=== PATIENT | female | born 1985 | race Caucasian/White ===

== ENCOUNTER 2016-10-23 12:45 | Emergency (ER) | payer MEDICAID ==
[~2016-10-23] VITALS: Ht 167.6 cm; Wt 61.2 kg
[2016-10-23 12:56] VITALS: BP 134/90
[2016-10-23] MEDS ORDERED: ONDANSETRON 4 MG ODT PO ONE (13:45)
[2016-10-23] MEDS ORDERED: KETOROLAC 60 MG/2 ML VIAL IM ONE (13:45)
[2016-10-23 14:43] VITALS: BP 134/90
--- NOTE | 2016-10-23 14:44 | NUR ---
31 YO FEMALE BIB SELF FOR ANXIETY TO BED 4 FOR MD NARAYANAN.
--- NOTE | 2016-10-23 14:44 | NUR ---
Patient discharged with v/s stable. Written and verbal after care instructions given and explained. Patient alert, oriented and verbalized understanding of instructions. Ambulatory with steady gait. All questions addressed prior to discharge. ID band removed. Patient advised to follow up with PMD. Rx of ATARAX AND ZOFRAN given. Patient educated on indication of medication including possible reaction and side effects. Opportunity to ask questions provided and answered.
== END 2016-10-23 14:44 | disposition home or self-care (01) ==
LOC: MED 12:45
DX: F41.9 Anxiety disorder, unspecified (principal); R51 Headache; F12.10 Cannabis abuse, uncomplicated
CPT/HCPCS: 96372; 99284; J1885; S0119; 81002; 81025